=== PATIENT | female | born 1950 | race Caucasian/White ===

== ENCOUNTER 2017-08-12 12:23 | Inpatient (IN) | payer OTHER ==
[2017-08-12] MEDS ORDERED: ALBUTEROL 60 PUFFS/8 GM MDI IH PRN (16:58)
[2017-08-12] MEDS ORDERED: oxyCODONE IR 5 MG TAB PO PRN (16:58)
[2017-08-12] MEDS ORDERED: BISACODYL 10 MG SUPP PR PRN (17:36)
--- NOTE | 2017-08-12 18:05 | GHP ---
[f rep st] HISTORY AND PHYSICAL POST ADMISSION PHYSICIAN EVALUATION AND REHABILITATION TREATMENT PLAN DATE OF ADMISSION: 08/12/2017 DATE OF EVALUATION: 08/12/2017 TIME OF EVALUATION: 1645 REFERRING FACILITY: [facility]. REFERRING PHYSICIAN: Dr. Conti IMPAIRMENT GROUP: 2.1. DATE OF ONSET: 08/06/2017. CONSULTING PHYSICIANS: Pulmonary and community service specialist while she was in the ICU after surgery. Cardiology. REHABILITATION DIAGNOSIS: Debility, status post craniotomy and excision of right frontal brain tumor. ETIOLOGIC DIAGNOSIS: Nontraumatic brain dysfunction. DATE OF SURGERY: 08/06/2017 DATE OF ONSET: 08/06/2017. DATE OF SURGERY: 08/06/2017. HISTORY OF PRESENT ILLNESS: This patient had a fall approximately a month ago after which she had a head CT, which showed a right frontal mass. She was started on dexamethasone and scheduled for surgery. 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 She had an elective right craniotomy and excision of the mass. After surgery, she had 2 episodes of bradycardia, which were considered vasovagal that were associated with nausea, but subsequently, she has had no such episodes. Cardiology was consulted about these episodes and did not recommend any intervention. She was medically stable and ready for rehabilitation. LABORATORY DATA: I see results of the lipid panel, I believe, done last January, which was fairly benign with a total cholesterol of 193 and HDL of 40. I see the results of basic metabolic panel x2 and these were within normal limits after her surgery on 08/10 and 08/11. PRECAUTIONS: She is a fall risk and she has seizure precautions. ACTIVE COMORBIDITIES: She has no active tier 1, tier 2 or tier 3 comorbidities. PAST MEDICAL HISTORY: 1. Endometrial thickening. 2. Prediabetes. 3. Postmenopausal bleeding. 4. Episode of shortness of breath following her fall a month ago. 5. Ectopic . PAST SURGICAL HISTORY: 1. Salpingectomy. 2. Tonsillectomy 3. Cesarian delivery PRE-HOSPITAL MEDICATIONS: 1. Dexamethasone 4 mg p.o. q.12 hours. 2. Albuterol nebulizer or metered-dose inhaler p.r.n. 3. Cholecalciferol 1000 units p.o. daily. 4. Atorvastatin 20 mg p.o. daily. 5. Levothyroxine 50 mcg p.o. daily. 6. Vitamin B12 1000 mcg p.o. daily. 7. Mammoth-3 fatty acids 1000 mg p.o. 3 times daily. ADMISSION MEDICATIONS: 1. Albuterol 2 puffs MDI or nebulizer q.4 hours p.r.n. 2. Atorvastatin 20 mg p.o. at bedtime. 3. Calcium carbonate 500 mg p.o. t.i.d. p.r.n. 4. Cholecalciferol 1000 units p.o. daily. 5. Cyanocobalamin 1000 mcg p.o. daily. 6. Famotidine 20 mg p.o. b.i.d. 7. Levetiracetam 750 mg p.o. b.i.d. 8. Levothyroxine 50 mcg p.o. daily. 9. Mammoth-3 fatty acids 1 p.o. t.i.d. 10. Oxycodone 5-10 mg p.o. q.4 hours p.r.n. 11. Polyethylene glycol 17 g p.o. daily. 12. Senna/docusate 2 tablets p.o. b.i.d. 13. Dexamethasone taper. ALLERGIES: There are no known drug allergies. PSYCHOSOCIAL HISTORY: She is . She lives with her . There are 3 steps to enter the house and a flight of steps up to their bedroom. She has 2 local daughters. 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 She is a nonsmoker. FAMILY HISTORY: Noncontributory. REVIEW OF SYSTEMS: She is aware of slow processing cognitively. She has headaches. She denies vision changes, weakness, numbness or tingling of the extremities. She is not aware of difficulty breathing; however, she is currently on oxygen. She has not been sleeping well. She says she snores occasionally. She denies any loss of sensation. She is not aware of chest pain or palpitations. She does not have a cough or dyspnea. There is no constipation, diarrhea, nausea or vomiting. There is no dysuria or urinary frequency. Otherwise, a 10-point review of systems is negative. PHYSICAL EXAMINATION: VITAL SIGNS: Blood pressure is 111/72, heart rate is 60 , respiratory rate is 16, oxygen saturation is 90% on room air. Temperature is 36.4 degrees Centigrade. I do not have a current weight; however, her weight in clinic prior to her hospitalization was 192 pounds for a BMI of 29. GENERAL : This is an overweight woman dressed in hospital gown, lying in bed, cooperative and in no acute distress. HEENT: Extraocular movements are intact. Pupils are equal, round, reactive to light. Mucous membranes are moist. Dentition is in good condition. She has a crowded airway, Mallampati class 3. NECK: Supple. HEART: There is a regular rate and rhythm with no murmurs, rubs, or gallops. LUNGS: Clear to auscultation bilaterally. ABDOMEN : Soft, nontender, nondistended with normoactive bowel sounds and no hepatosplenomegaly. EXTREMITIES: There is no cyanosis, clubbing, or edema. Radial and dorsalis pedis pulses are 2+ bilaterally. NEUROLOGIC: She is alert. She initially needs orientation to the date, but subsequently retains the orientation, and she is oriented to her place and her current situation. She has a flat affect and slow processing. Cranial nerves 2-12 are grossly intact. Regarding muscle strength, she has weakness at the left hand reinsurance claim analyst, which is 4/5 and at the left lower extremity where the hip flexors are 4/5, at the hamstrings are 4/5, and the quadriceps are 4/5. On the right, her strength is more or less 5/5 overall, though she is less than 5/5 at the left hamstrings and left quadriceps. Sensation is intact to light touch. Deep tendon reflexes are 2+ bilaterally at the biceps, patellar, and Achilles tendons. There is no pronator drift. CURRENT LEVEL OF FUNCTION: Per the pre-admission screen. Regarding diet, feeding, and swallowing, she was on a regular diet and required setup and supervision. For grooming, she needed assistance. For bathing, she needed assistance. For dressing, she needed assistance. For toileting, she needed assistance. Bed mobility was accomplished with minimal assist, transfers with minimal assist and verbal cues. For balance, she required standby assist. Her endurance was fair. She was able to ambulate with minimal assist and a front- wheeled walker. Communication was considered impaired. Regarding cognition, she was noted to be alert and oriented. She followed simple directions. She had impaired executive function, problem solving, and short-term memory. There are no changes on today's exam from the pre-admission screen. IMPRESSION: This is a 67-year-old woman who had a fall approximately a month ago. A head CT found a right frontal mass. Subsequent MRI showed a mass consistent with a high-grade glioma. She underwent surgery 6 days ago with craniotomy and excision of the mass. She had some heart rhythm complications post surgery, including an episode of asystole following an episode of nausea. There was a cardiology consultation and this was considered to be vasovagal and unlikely to be cardiac structural. She has slow processing and likely cognitive impairment, as well as left-sided weakness. She is appropriate for inpatient rehabilitation where she will benefit from PT, OT, and BENEFITS TECHNICIAN to optimize ADLs and mobility towards supervision to modified independent and to optimize cognition toward discharge home safely. Her goal is to complete inpatient rehabilitation and go home with family. She will have therapy with physical therapy, occupational therapy, and speech and language pathology for 60 minutes per day per discipline on 5-7 days of the week. Her expected duration of stay is 10-14 days. It is anticipated that upon discharge, she will continue to benefit from home health services, including Speech and Language Pathology, OT, and PT, and an outpatient brain injury support group. PLAN: 1. Left-sided weakness, status post craniotomy and excision of right frontal brain mass with deficits to mobility and ADLs. PT and OT to optimize mobility and activities of daily living toward discharge to home at the supervision to modified independence level. 2. Cognitive impairment status post surgery, to be assessed and treated per Speech and Language Pathology. 3. Post surgical care. Continue levetiracetam until followup with Neurosurgery. She has been discharged on a dexamethasone taper, but the details are not available. We will contact the discharging hospital to clarify details of dexamethasone taper. 4. Dyspnea, which was coincident with her fall approximately a month prior to surgery. She was prescribed albuterol, both by metered dose inhaler and nebulizer. She is unclear whether this helped. She is currently on oxygen for mild hypoxemia. She will have incentive spirometry and monitoring, and further evaluation can be done depending on how she does. 5. Pain management. Continue oxycodone as ordered out of the hospital. Will additionally add acetaminophen. 6. Hypothyroidism. Continue levothyroxine. 7. Dyslipidemia. Continue atorvastatin. 8. Prophylaxis. With left hemiparesis and relative immobility, as well as a solid tumor, she is at increased risk of deep venous thrombosis. Will order enoxaparin 40 mg subcutaneous daily until her mobility improves considerably. FOLLOWUP: She has followup scheduled with the [facility] on September 04 at 4 p.m. /[id number]/MODL MTDD
--- NOTE | 2017-08-12 18:17 | PDOREHIP ---
Admission IRF-[facility] - Admission - 3 Day Assessment Period Admission Date/Day 1: 08/12/17 Day 2: 08/13/17 Day 3: 08/14/17 - Active Diagnoses Comorbidities and Co-existing Conditions at Admission: 23820. None of the Above - Skin Conditions Unhealed Pressure Ulcer (1 or more/Stage 1 or >)-Admission: 0. No
[2017-08-12] MEDS: FAMOTIDINE 20 MG TAB PO SCH (20:23)
[2017-08-12] MEDS: levETIRAcetam 250 MG TAB PO SCH (20:23)
[2017-08-12] MEDS: DEXAMETHASONE 4 MG TAB PO SCH (20:24)
[2017-08-12] MEDS: ATORVASTATIN CALCIUM 20 MG TAB PO SCH (20:24)
[2017-08-12] MEDS: OMEGA-3 FATTY ACIDS 1,000 MG CAP PO SCH (20:24)
[2017-08-12] MEDS: SENNOSIDES/DOCUSATE SODIUM TAB PO SCH (20:30)
[2017-08-12] MEDS ORDERED: DHA PO SCH (22:00)
[2017-08-12] MEDS ORDERED: OMEGA PO SCH (22:00)
[2017-08-12] MEDS ORDERED: EPA PO SCH (22:00)
[2017-08-12] MEDS ORDERED: FISH OIL PO SCH (22:00)
[2017-08-13] MEDS: ACETAMINOPHEN 325 MG TAB PO PRN ×2 (04:42→21:06)
[2017-08-13] MEDS: LEVOTHYROXINE 50 MCG TAB PO SCH (05:20)
[2017-08-13] MEDS: SENNOSIDES/DOCUSATE SODIUM TAB PO SCH ×2 (08:31→21:06)
[2017-08-13] MEDS: POLYETHYLENE GLYCOL 3350 17 GM PKT PO SCH (08:31)
[2017-08-13] MEDS: CHOLECALCIFEROL VIT D3 1,000 UNITS TAB PO SCH (08:32)
[2017-08-13] MEDS: CYANO/VITAMIN B12 1000 MCG TAB PO SCH (08:33)
[2017-08-13] MEDS: DEXAMETHASONE 4 MG TAB PO SCH ×2 (08:33→21:06)
[2017-08-13] MEDS: FAMOTIDINE 20 MG TAB PO SCH ×2 (08:34→21:06)
[2017-08-13] MEDS: levETIRAcetam 250 MG TAB PO SCH ×2 (08:36→21:06)
[2017-08-13] MEDS: OMEGA-3 FATTY ACIDS 1,000 MG CAP PO SCH ×3 (08:37→21:06)
[2017-08-13 08:47] LABS: PLATELET COUNT 212 10^3/uL (150-400)
[2017-08-13] MEDS: ENOXAPARIN 40 MG/0.4 ML SYR SC SCH (08:56)
[2017-08-13] MEDS ORDERED: NON-FORMULARY NEW DRUG (Cyanocobalamin (Vitamin B-12) [Vitamin B-12] 1,000 MCG) PO SCH (09:00)
[2017-08-13] MEDS ORDERED: CHOLECALCIFEROL 1000 UNIT PO SCH (09:00)
--- NOTE | 2017-08-13 10:08 | SOAPPROG ---
SOAP Progress Note Assessment/Plan: Assessment: * Left-sided weakness, status post craniotomy and excision of right frontal brain mass with deficits to mobility and ADLs. PT and OT to optimize mobility and activities of daily living toward discharge to home at the supervision to modified independence level. * Cognitive impairment status post surgery, to be assessed and treated per Speech and Language Pathology. * Post surgical care. Continue levetiracetam until followup with Neurosurgery. Continue dexamethasone taper. * Dyspnea, which was coincident with her fall approximately a month prior to surgery. * Not requiring O2. * Continue incentive spirometer. * Continue p.r.n. Albuterol. * Pain management. * Appears to be adequate with acetaminophen. Not using oxycodone. * Ecchymosis right plantar foot. * May have had minor trauma that she did not notice, and has easy bruising due to enoxaparin. * Hypothyroidism. Continue levothyroxine. * Dyslipidemia. Continue atorvastatin. * Prophylaxis. With left hemiparesis and relative immobility, as well as a solid tumor, she is at increased risk of deep venous thrombosis. Will order enoxaparin 40 mg subcutaneous daily until her mobility improves considerably. FOLLOWUP: She has followup scheduled with the [facility] on September 04 at 4 p.m. 08/13/17 11:22 Subjective: Did not sleep well. Reports she lot on her mind. However declines offer of melatonin or trazodone. She says she uses a marijuana cooking nightly at home. Otherwise without complaints. Daughter noted a bruised spot on her right foot. She reports occupational therapy is help her with awareness of the position of her left arm. Objective: Vital Signs Temp Pulse Resp BP Pulse Ox 36.5 C 90 16 104/66 96 08/13/17 08:00 08/13/17 08:00 08/12/17 20:00 08/13/17 08:00 08/13/17 08:00 Laboratory Results 08/13/17 06:00 08/13/17 06:00 08/12/17 08/13/17 08/14/17 05:59 05:59 05:59 Intake Total 836 250 Output Total 1850 300 Balance -1014 -50 Physical Exam - Physical Exam General Appearance: WD/WN, alert, no apparent distress Respiratory: normal breath sounds, No crackles, No rhonchi, No wheezing Cardiac/Chest: regular rate, rhythm, No edema, No diastolic murmur, No systolic murmur Peripheral Pulses: 2+: dorsalis-pedis (R) Skin: normal color, warm/dry, other (1.5 cm area of ecchymosis right plantar foot under her arch. Nontender.) Neuro/Psych: alert, normal mood/affect, oriented x 3, motor weakness (LUE) ICD10 Worksheet Patient Problems: Problems Problem Status Onset Brain mass Acute S/P craniotomy Acute
[2017-08-13] MEDS: ATORVASTATIN CALCIUM 20 MG TAB PO SCH (21:06)
[2017-08-14] MEDS: CALCIUM CARBONATE 500 MG CHEWABLE TAB PO PRN ×2 (00:53→04:25)
[2017-08-14] MEDS: LEVOTHYROXINE 50 MCG TAB PO SCH (06:08)
[2017-08-14] MEDS: DEXAMETHASONE 4 MG TAB PO SCH ×2 (08:58→21:33)
[2017-08-14] MEDS: levETIRAcetam 250 MG TAB PO SCH ×2 (08:59→21:32)
[2017-08-14] MEDS: CYANO/VITAMIN B12 1000 MCG TAB PO SCH (09:01)
[2017-08-14] MEDS: OMEGA-3 FATTY ACIDS 1,000 MG CAP PO SCH ×3 (09:01→21:33)
[2017-08-14] MEDS: FAMOTIDINE 20 MG TAB PO SCH ×2 (09:01→21:33)
[2017-08-14] MEDS: CHOLECALCIFEROL VIT D3 1,000 UNITS TAB PO SCH (09:05)
[2017-08-14] MEDS: SENNOSIDES/DOCUSATE SODIUM TAB PO SCH ×2 (09:06→21:39)
[2017-08-14] MEDS: POLYETHYLENE GLYCOL 3350 17 GM PKT PO SCH (09:06)
[2017-08-14] MEDS: ENOXAPARIN 40 MG/0.4 ML SYR SC SCH (11:02)
--- NOTE | 2017-08-14 13:44 | SOAPPROG ---
SOAP Progress Note Assessment/Plan: Assessment: * Left-sided weakness, status post craniotomy and excision of right frontal brain mass with deficits to mobility and ADLs. * Initial functional independence measure of 67 on 08/14/2017. She has left hemineglect. Transfer and ambulation with front wheeled walker requires SBA/ CGA. She climbed steps with 1 railing, SBA/CGA. Dressing was done with setup to standby assist but she needed cues to pull up right pants leg. She showered with close standby assist. * Continue PT and OT to optimize mobility and activities of daily living toward discharge to home at the supervision to modified independence level. * Mild dysphagia and DIS prosody. Continue Speech and Language Pathology. * Post surgical care. Continue levetiracetam until followup with Neurosurgery. Continue dexamethasone taper. * Dyspnea, which was coincident with her fall approximately a month prior to surgery. * Not requiring O2. * Continue incentive spirometer. * Continue p.r.n. Albuterol. * Pain management. * Appears to be adequate with acetaminophen. Not using oxycodone. * Ecchymosis right plantar foot. * May have had minor trauma that she did not notice, and has easy bruising due to enoxaparin. * Hypothyroidism. Continue levothyroxine. * Dyslipidemia. Continue atorvastatin. * Prophylaxis. With left hemiparesis and relative immobility, as well as a solid tumor, she is at increased risk of deep venous thrombosis. Continue enoxaparin 40 mg subcutaneous daily until her mobility improves considerably. FOLLOWUP: She has followup scheduled with the [facility] on 08/20 at 1400. Transport by , Therapeutic pass for [facility], 08/18/2017. Car transfer training with . Attended staffing, 15 min. Discussed with case management. Dietitian, pharmacist, nursing, PT, OT, FAMILY RESOURCE MANAGEMENT SPECIALIST. Tentative discharge date set for 08/28/2017, home with . 08/14/17 13:45 Subjective: No complaints. Not in pain. Aware that she can lose balance when distracted. Objective: Vital Signs Temp Pulse Resp BP Pulse Ox 36.6 C 51 L 18 122/75 H 94 08/14/17 06:10 08/14/17 06:10 08/14/17 06:10 08/14/17 06:10 08/14/17 06:10 Laboratory Results 08/13/17 06:00 08/13/17 06:00 08/13/17 08/14/17 08/15/17 05:59 05:59 05:59 Intake Total 836 1640 240 Output Total 1850 1300 Balance -1014 340 240 - Time Spent With Patient Time Spent With Patient: Greater than 35 min floor time today, including more than 50% of time in coordination of care during staffing meeting, and counseling patient. Physical Exam - Physical Exam General Appearance: WD/WN, alert, no apparent distress Respiratory: normal breath sounds, No crackles, No rhonchi, No wheezing Cardiac/Chest: regular rate, rhythm, No diastolic murmur, No systolic murmur Skin: normal color, warm/dry, other (Incision C/D/I) Neuro/Psych: alert, normal mood/affect, oriented x 3, abnormal gait (Slow, with front wheeled walker. Loss of balance to left when distracted on her right side with fall prevented by physical therapist.) ICD10 Worksheet Patient Problems: Problems Problem Status Onset Brain mass Acute S/P craniotomy Acute
[2017-08-14] MEDS: ATORVASTATIN CALCIUM 20 MG TAB PO SCH (21:33)
[2017-08-15] MEDS: ACETAMINOPHEN 325 MG TAB PO PRN ×2 (03:24→19:35)
[2017-08-15] MEDS: LEVOTHYROXINE 50 MCG TAB PO SCH (06:00)
[2017-08-15] MEDS: CYANO/VITAMIN B12 1000 MCG TAB PO SCH (09:33)
[2017-08-15] MEDS: levETIRAcetam 250 MG TAB PO SCH ×2 (09:33→20:50)
[2017-08-15] MEDS: FAMOTIDINE 20 MG TAB PO SCH ×2 (09:33→20:49)
[2017-08-15] MEDS: DEXAMETHASONE 2 MG TAB PO SCH ×2 (09:34→20:49)
[2017-08-15] MEDS: OMEGA-3 FATTY ACIDS 1,000 MG CAP PO SCH ×3 (09:34→20:55)
[2017-08-15] MEDS: ENOXAPARIN 40 MG/0.4 ML SYR SC SCH (09:37)
[2017-08-15] MEDS: SENNOSIDES/DOCUSATE SODIUM TAB PO SCH ×2 (09:41→22:22)
[2017-08-15] MEDS: POLYETHYLENE GLYCOL 3350 17 GM PKT PO SCH (09:41)
--- NOTE | 2017-08-15 11:48 | SOAPPROG ---
SOAP Progress Note Assessment/Plan: Assessment: * Left-sided weakness, status post craniotomy and excision of right frontal brain mass on 08/06/2017 with deficits to mobility and ADLs. * Initial functional independence measure of 67 on 08/14/2017. She has left hemineglect. Transfer and ambulation with front wheeled walker requires SBA/ CGA. She climbed steps with 1 railing, SBA/CGA. Dressing was done with setup to standby assist but she needed cues to pull up right pants leg. She showered with close standby assist. * Continue PT and OT to optimize mobility and activities of daily living toward discharge to home at the supervision to modified independence level. * Mild dysphagia and DIS prosody. Continue Speech and Language Pathology. * Post surgical care. Continue levetiracetam until followup with Neurosurgery. Continue dexamethasone taper. * Dyspnea, which was coincident with her fall approximately a month prior to surgery. * Not requiring O2. * Continue incentive spirometer. * Continue p.r.n. Albuterol. * Pain management. * Appears to be adequate with acetaminophen. Not using oxycodone. * Ecchymosis right plantar foot. * May have had minor trauma that she did not notice, and has easy bruising due to enoxaparin. * Hypothyroidism. Continue levothyroxine. * Dyslipidemia. Continue atorvastatin. * Prophylaxis. With left hemiparesis and relative immobility, as well as a solid tumor, she is at increased risk of deep venous thrombosis. Continue enoxaparin 40 mg subcutaneous daily until her mobility improves considerably. FOLLOWUP: She has followup scheduled with the [facility] on 08/20 at 1400. Transport by . Therapeutic pass for [facility], 08/18/2017. Car transfer training with . Tentative discharge date set for 08/28/2017, home with . 08/15/17 11:55 Subjective: No complaints. Slept well. No cough or dyspnea, no fevers or chills. Finds working with therapies to be hard work. Objective: Vital Signs Temp Pulse Resp BP Pulse Ox 36.6 C 68 16 98/68 L 92 08/15/17 06:15 08/15/17 06:15 08/15/17 06:15 08/15/17 06:15 08/15/17 06:15 Laboratory Results 08/13/17 06:00 08/13/17 06:00 08/14/17 08/15/17 08/16/17 05:59 05:59 05:59 Intake Total 1640 360 606 Output Total 1300 Balance 340 360 606 Physical Exam - Physical Exam General Appearance: WD/WN, alert, no apparent distress Respiratory: normal breath sounds, No crackles, No rhonchi, No wheezing Cardiac/Chest: regular rate, rhythm, No edema Skin: normal color, warm/dry, other (Scalp incision clean dry and intact; no external sutures visible.) Neuro/Psych: alert, normal mood/affect, oriented x 3 ICD10 Worksheet Patient Problems: Problems Problem Status Onset Brain mass Acute S/P craniotomy Acute
[2017-08-15] MEDS: ATORVASTATIN CALCIUM 20 MG TAB PO SCH (20:49)
[2017-08-15] MEDS ORDERED: DEXAMETHASONE 2 MG TAB PO SCH (21:00)
[2017-08-15] MEDS: CALCIUM CARBONATE 500 MG CHEWABLE TAB PO PRN (23:06)
[2017-08-16] MEDS: CALCIUM CARBONATE 500 MG CHEWABLE TAB PO PRN (04:34)
[2017-08-16] MEDS: LEVOTHYROXINE 50 MCG TAB PO SCH (04:34)
[2017-08-16] MEDS: ENOXAPARIN 40 MG/0.4 ML SYR SC SCH (09:21)
[2017-08-16] MEDS: CHOLECALCIFEROL VIT D3 1,000 UNITS TAB PO SCH (09:21)
[2017-08-16] MEDS: CYANO/VITAMIN B12 1000 MCG TAB PO SCH (09:21)
[2017-08-16] MEDS: DEXAMETHASONE 2 MG TAB PO SCH ×2 (09:21→20:46)
[2017-08-16] MEDS: FAMOTIDINE 20 MG TAB PO SCH ×2 (09:21→20:42)
[2017-08-16] MEDS: POLYETHYLENE GLYCOL 3350 17 GM PKT PO SCH (09:22)
[2017-08-16] MEDS: OMEGA-3 FATTY ACIDS 1,000 MG CAP PO SCH ×3 (09:22→20:43)
[2017-08-16] MEDS: SENNOSIDES/DOCUSATE SODIUM TAB PO SCH ×2 (09:22→20:44)
[2017-08-16] MEDS: levETIRAcetam 250 MG TAB PO SCH ×2 (09:22→20:42)
--- NOTE | 2017-08-16 09:33 | SOAPPROG ---
SOAP Progress Note Assessment/Plan: Assessment: * Left-sided weakness, status post craniotomy and excision of right frontal brain mass on 08/06/2017 with deficits to mobility and ADLs. * Initial functional independence measure of 67 on 08/14/2017. She has left hemineglect. Transfer and ambulation with front wheeled walker requires SBA/ CGA. She climbed steps with 1 railing, SBA/CGA. Dressing was done with setup to standby assist but she needed cues to pull up right pants leg. She showered with close standby assist. * Continue PT and OT to optimize mobility and activities of daily living toward discharge to home at the supervision to modified independence level. * Mild dysphagia and dysprosody. Continue Speech and Language Pathology. * Post surgical care. Continue levetiracetam until followup with Neurosurgery. Continue dexamethasone taper. * Dyspnea, which was coincident with her fall approximately a month prior to surgery. * Not requiring O2. * Continue incentive spirometer. * Continue p.r.n. Albuterol. * Pain management. * Appears to be adequate with acetaminophen. Not using oxycodone. * Ecchymosis right plantar foot. * May have had minor trauma that she did not notice, and has easy bruising due to enoxaparin. * Hypothyroidism. Continue levothyroxine. * Dyslipidemia. Continue atorvastatin. * Prophylaxis. With left hemiparesis and relative immobility, as well as a solid tumor, she is at increased risk of deep venous thrombosis. Continue enoxaparin 40 mg subcutaneous daily until her mobility improves considerably. FOLLOWUP: She has followup scheduled with the [facility] on 08/20 at 1400. Transport by . Therapeutic pass for [facility], 08/18/2017. Car transfer training with . Tentative discharge date set for 08/28/2017, home with . 08/16/17 09:30 Subjective: Reports that incision her scalp has become itchy and she has remind herself to not pick at it. Says she had a restless night last night and had difficulty getting comfortable in bed but no specific pain complaints. No cough or dyspnea , no fevers or chills. Objective: Vital Signs Temp Pulse Resp BP Pulse Ox 36.9 C 87 15 106/71 96 08/15/17 18:31 08/15/17 18:31 08/15/17 18:31 08/15/17 18:31 08/15/17 18:31 Laboratory Results 08/13/17 06:00 08/13/17 06:00 08/15/17 08/16/17 08/17/17 05:59 05:59 05:59 Intake Total 360 1274 Output Total 1 Balance 360 1273 Physical Exam - Physical Exam General Appearance: WD/WN, alert, no apparent distress Respiratory: No respiratory distress, No accessory muscle use Skin: normal color, warm/dry Neuro/Psych: alert, normal mood/affect, oriented x 3, abnormal gait (Slow, wide- based, with front wheeled walker, accompanied by OT.) ICD10 Worksheet Patient Problems: Problems Problem Status Onset Brain mass Acute S/P craniotomy Acute
[2017-08-16] MEDS: ATORVASTATIN CALCIUM 20 MG TAB PO SCH (20:44)
[2017-08-16] MEDS: ACETAMINOPHEN 325 MG TAB PO PRN (20:44)
[2017-08-17] MEDS: LEVOTHYROXINE 50 MCG TAB PO SCH (05:31)
[2017-08-17] MEDS: DEXAMETHASONE 2 MG TAB PO SCH ×2 (08:28→20:32)
[2017-08-17] MEDS: FAMOTIDINE 20 MG TAB PO SCH ×2 (08:28→20:32)
[2017-08-17] MEDS: CHOLECALCIFEROL VIT D3 1,000 UNITS TAB PO SCH (08:29)
[2017-08-17] MEDS: CYANO/VITAMIN B12 1000 MCG TAB PO SCH (08:29)
[2017-08-17] MEDS: levETIRAcetam 250 MG TAB PO SCH ×2 (08:30→20:32)
[2017-08-17] MEDS: ENOXAPARIN 40 MG/0.4 ML SYR SC SCH (08:30)
[2017-08-17] MEDS: OMEGA-3 FATTY ACIDS 1,000 MG CAP PO SCH ×3 (08:30→20:56)
[2017-08-17] MEDS: SENNOSIDES/DOCUSATE SODIUM TAB PO SCH ×2 (08:31→20:56)
[2017-08-17] MEDS: POLYETHYLENE GLYCOL 3350 17 GM PKT PO SCH (08:31)
--- NOTE | 2017-08-17 10:03 | SOAPPROG ---
SOAP Progress Note Assessment/Plan: Assessment: * Left-sided weakness, status post craniotomy and excision of right frontal brain mass on 08/06/2017 with deficits to mobility and ADLs. * Initial functional independence measure of 67 on 08/14/2017. She has left hemineglect. Discussion with her therapist indicates that HER ADÁN-NEGLECT MAY BE IMPROVING. ON TODAY'S EXAM, PATIENT IS AWARE OF AT LEAST INTERMITTENT LEFT ADÁN-NEGLECT. WHEN ASKED TO RAISE BOTH ARMS ABOVE SHOULDER LEVEL SHE COMPLIES. ALSO COMPLIES BILATERALLY WITH [id number] TESTING. OCCUPATIONAL THERAPY TO FOCUS ON STRATEGIES TO MINIMIZE TENDENCY TO LEFT ADÁN-NEGLECT. MIRROR THERAPY AND LIMB ISOLATION MAY BE HELPFUL. Transfer and ambulation with front wheeled walker requires SBA/CGA. She climbed steps with 1 railing, SBA/CGA. Dressing was done with setup to standby assist but she needed cues to pull up right pants leg. She showered with close standby assist. * Continue PT and OT to optimize mobility and activities of daily living toward discharge to home at the supervision to modified independence level. * Mild dysphagia and dysprosody. Continue Speech and Language Pathology. * Post surgical care. Continue levetiracetam until followup with Neurosurgery. Continue dexamethasone taper. * Dyspnea, which was coincident with her fall approximately a month prior to surgery. * Not requiring O2. * Continue incentive spirometer. * Continue p.r.n. Albuterol. * Pain management. * Appears to be adequate with acetaminophen. Not using oxycodone. * Ecchymosis right plantar foot. * May have had minor trauma that she did not notice, and has easy bruising due to enoxaparin. * Hypothyroidism. Continue levothyroxine. * Dyslipidemia. Continue atorvastatin. * Prophylaxis. With left hemiparesis and relative immobility, as well as a solid tumor, she is at increased risk of deep venous thrombosis. Continue enoxaparin 40 mg subcutaneous daily until her mobility improves considerably. FOLLOWUP: She has followup scheduled with the [facility] on 08/20 at 1400. Transport by . Therapeutic pass for [facility], 08/18/2017. Car transfer training with . Tentative discharge date set for 08/28/2017, home with . Plan: 08/17/17 10:03 Subjective: NO COMPLAINTS REPORTED BY PATIENT OR NURSING STAFF. Objective: Vital Signs Temp Pulse Resp BP Pulse Ox 36.6 C 75 16 116/75 93 08/17/17 06:32 08/17/17 06:32 08/17/17 06:32 08/17/17 06:32 08/17/17 06:32 Laboratory Results 08/13/17 06:00 08/13/17 06:00 08/16/17 08/17/17 08/18/17 05:59 05:59 05:59 Intake Total 1273 360 760 Output Total 1 Balance 1273 360 760 Physical Exam - Physical Exam General Appearance: alert, no apparent distress Respiratory: chest non-tender, lungs clear Cardiac/Chest: irregularly irregular, No edema Abdomen: non-tender, soft Skin: warm/dry Extremities: No swelling, No Lisa's sign Neuro/Psych: alert, normal mood/affect, motor weakness, other (MILD LEFT UPPER GREATER THAN LOWER EXTREMITY WEAKNESS WITH MILD DYSMETRIA ON THE LEFT. 4-/5 SHOULDER GIRDLE STRENGTH, WRIST EXTENSORS.) ICD10 Worksheet Patient Problems: Problems Problem Status Onset Brain mass Acute S/P craniotomy Acute
[2017-08-17] MEDS: ATORVASTATIN CALCIUM 20 MG TAB PO SCH (20:32)
[2017-08-18] MEDS: LEVOTHYROXINE 50 MCG TAB PO SCH (05:33)
[2017-08-18] MEDS: ENOXAPARIN 40 MG/0.4 ML SYR SC SCH (08:28)
[2017-08-18] MEDS: CYANO/VITAMIN B12 1000 MCG TAB PO SCH (08:29)
[2017-08-18] MEDS: DEXAMETHASONE 2 MG TAB PO SCH ×2 (08:29→20:29)
[2017-08-18] MEDS: SENNOSIDES/DOCUSATE SODIUM TAB PO SCH ×2 (08:29→21:40)
[2017-08-18] MEDS: OMEGA-3 FATTY ACIDS 1,000 MG CAP PO SCH ×3 (08:29→20:28)
[2017-08-18] MEDS: levETIRAcetam 250 MG TAB PO SCH ×2 (08:29→20:30)
[2017-08-18] MEDS: CHOLECALCIFEROL VIT D3 1,000 UNITS TAB PO SCH (08:29)
[2017-08-18] MEDS: FAMOTIDINE 20 MG TAB PO SCH ×2 (08:30→20:29)
[2017-08-18] MEDS: POLYETHYLENE GLYCOL 3350 17 GM PKT PO SCH (08:30)
--- NOTE | 2017-08-18 09:37 | SOAPPROG ---
SOAP Progress Note Assessment/Plan: Assessment: * Left-sided weakness, status post craniotomy and excision of right frontal brain mass on 08/06/2017 with deficits to mobility and ADLs. DISCUSSED LEFT ADÁN -NEGLECT WITH HER SPEECH THERAPIST WHO AGREES THAT IT IS MILD AND SHE IS COGNIZANT OF IT. THIS PORTENDS A FAVORABLE PROGNOSIS. THEY ARE WORKING ON COMPENSATORY STRATEGIES FOR THIS. Transfer and ambulation with front wheeled walker requires SBA/CGA. She climbed steps with 1 railing, SBA/CGA. Dressing was done with setup to standby assist but she needed cues to pull up right pants leg. She showered with close standby assist. * Continue PT and OT to optimize mobility and activities of daily living toward discharge to home at the supervision to modified independence level. * Mild dysphagia and dysprosody. Continue Speech and Language Pathology. I HAVE ASKED HER SPEECH THERAPIST TO PROVIDE HER WITH SOME PUZZLES AND WORD GAMES X CETERA TO HELP IMPROVE HER CONCENTRATION AND ATTENTION. * Post surgical care. Continue levetiracetam until followup with Neurosurgery. Continue dexamethasone taper. * Dyspnea, which was coincident with her fall approximately a month prior to surgery. * Not requiring O2. * Continue incentive spirometer. * Continue p.r.n. Albuterol. * Pain management. * Appears to be adequate with acetaminophen. Not using oxycodone. * Ecchymosis right plantar foot. * May have had minor trauma that she did not notice, and has easy bruising due to enoxaparin. * Hypothyroidism. Continue levothyroxine. * Dyslipidemia. Continue atorvastatin. * Prophylaxis. With left hemiparesis and relative immobility, as well as a solid tumor, she is at increased risk of deep venous thrombosis. Continue enoxaparin 40 mg subcutaneous daily until her mobility improves considerably. SHE IS ONLY WALKING ABOUT 60 FT WITH FWW. I HAVE ENCOURAGED HER TO HAVE THE REHAB STAFF WALK WITH HER UP AND DOWN THE HALLWAY SEVERAL TIMES PER DAY. SHE UNDERSTANDS THAT SHE IS CONTACT GUARD ASSIST. FOLLOWUP: She has followup scheduled with the [facility] on 08/20 at 1400. Transport by . Therapeutic pass for [facility], 08/18/2017. Car transfer training with . Tentative discharge date set for 08/28/2017, home with . 08/18/17 09:34 Subjective: SHE REPORTS THAT SHE IS A LITTLE DISCOURAGED AT THE SLOW PROGRESS OF HER THERAPIES. SHE HAS BEEN WORKING WITH SPEECH THERAPY ON THE LEFT-SIDED NEGLECT. SHE RELATES THAT SHE HAD SOME DIFFICULTY DOING CROSSWORD PUZZLES YESTERDAY. Objective: Vital Signs Temp Pulse Resp BP Pulse Ox 36.7 C 67 16 111/73 93 08/18/17 06:01 08/18/17 06:01 08/18/17 06:01 08/18/17 06:01 08/18/17 06:01 Laboratory Results 08/13/17 06:00 08/13/17 06:00 08/17/17 08/18/17 08/19/17 05:59 05:59 05:59 Intake Total 360 2070 Balance 360 2070 Physical Exam - Physical Exam General Appearance: WD/WN, alert, no apparent distress EENT: PERRL/EOMI Respiratory: lungs clear, normal breath sounds Abdomen: non-tender, soft Neuro/Psych: depressed affect ICD10 Worksheet Patient Problems: Problems Problem Status Onset Brain mass Acute S/P craniotomy Acute
[2017-08-18] MEDS: ATORVASTATIN CALCIUM 20 MG TAB PO SCH (20:29)
[2017-08-18] MEDS: CALCIUM CARBONATE 500 MG CHEWABLE TAB PO PRN (20:50)
[2017-08-19] MEDS: LEVOTHYROXINE 50 MCG TAB PO SCH (04:54)
[2017-08-19] MEDS ORDERED: ENOXAPARIN 40 MG/0.4 ML SYR SC ONE (09:16)
[2017-08-19] MEDS ORDERED: SENNOSIDES/DOCUSATE SODIUM TAB PO PRN (09:50)
[2017-08-19] MEDS ORDERED: ENOXAPARIN 80 MG/0.8 ML SYR SC ONE (10:30)
[2017-08-19] MEDS: FAMOTIDINE 20 MG TAB PO SCH ×2 (10:54→21:07)
[2017-08-19] MEDS: levETIRAcetam 250 MG TAB PO SCH ×2 (10:54→21:07)
[2017-08-19] MEDS: CHOLECALCIFEROL VIT D3 1,000 UNITS TAB PO SCH (10:54)
[2017-08-19] MEDS: DEXAMETHASONE 2 MG TAB PO SCH ×2 (10:54→21:08)
[2017-08-19] MEDS: POLYETHYLENE GLYCOL 3350 17 GM PKT PO SCH (10:55)
[2017-08-19] MEDS: CYANO/VITAMIN B12 1000 MCG TAB PO SCH (10:55)
[2017-08-19] MEDS: SENNOSIDES/DOCUSATE SODIUM TAB PO SCH (11:14)
[2017-08-19] MEDS: OMEGA-3 FATTY ACIDS 1,000 MG CAP PO SCH (11:14)
[2017-08-19] MEDS: ENOXAPARIN 40 MG/0.4 ML SYR SC SCH (11:14)
[2017-08-19] MEDS: ACETAMINOPHEN 325 MG TAB PO PRN (11:24)
--- NOTE | 2017-08-19 11:47 | SOAPPROG ---
SOAP Progress Note Assessment/Plan: Assessment: * Left-sided weakness, status post craniotomy and excision of right frontal brain mass on 08/06/2017 with deficits to mobility and ADLs. * Initial functional independence measure of 67 on 08/14/2017. She has left hemineglect. Transfer and ambulation with front wheeled walker requires SBA/ CGA. She climbed steps with 1 railing, SBA/CGA. Dressing was done with setup to standby assist but she needed cues to pull up right pants leg. She showered with close standby assist. * Continue PT and OT to optimize mobility and activities of daily living toward discharge to home at the supervision to modified independence level. * Mild dysphagia and dysprosody. Continue Speech and Language Pathology. * Post surgical care. Continue levetiracetam until followup with Neurosurgery. Continue dexamethasone taper. * DVT, distal, peroneal vein. * High risk per Wells score, and had DVT while on prophylactic enoxaparin. * Changed enoxaparin to treatment dose, 1 milligram/kilogram subcutaneous twice daily. * She should certainly continue for 1 month, and possibly 3 months or indefinitely. * NOAC is a possibility but there is less data re use in cancer patients. She says she doesn't mind the injections. * Follow-up with Oncology. * Dyspnea, which was coincident with her fall approximately a month prior to surgery. * Not requiring O2. * Continue incentive spirometer. * Continue p.r.n. Albuterol. * Pain management. * Appears to be adequate with acetaminophen. Not using oxycodone. * Ecchymosis right plantar foot. * May have had minor trauma that she did not notice, and has easy bruising due to enoxaparin. * Hypothyroidism. Continue levothyroxine. * Dyslipidemia. Continue atorvastatin. * Prophylaxis. With left hemiparesis and relative immobility, as well as a solid tumor, she is at increased risk of deep venous thrombosis. Continue enoxaparin 40 mg subcutaneous daily until her mobility improves considerably. FOLLOWUP: She has followup scheduled with the [facility] on 08/20 at 1400. Transport by . Tentative discharge date set for 08/28/2017, home with . Will have home PT OT and ENVIRONMENTAL EDUCATION SPECIALIST. 08/19/17 11:42 Subjective: Dislikes the SCDs at night. She says it feels like they are rats chewing at her legs. Denies and chest pain cough or dyspnea. Had left calf pain this morning and was diagnosed with DVT. Objective: Vital Signs Temp Pulse Resp BP Pulse Ox 36.9 C 62 16 104/78 96 08/19/17 10:24 08/19/17 10:24 08/19/17 10:24 08/19/17 10:24 08/19/17 10:24 Laboratory Results 08/13/17 06:00 08/13/17 06:00 08/18/17 08/19/17 08/20/17 05:59 05:59 05:59 Intake Total 2069 700 476 Balance 2069 700 476 Physical Exam - Physical Exam General Appearance: WD/WN, alert, no apparent distress Respiratory: No respiratory distress, No accessory muscle use Skin: normal color, warm/dry Neuro/Psych: alert, normal mood/affect, oriented x 3, other (Gait he is nearly normal with trekking pole in left hand, accompanied by PT.) ICD10 Worksheet Patient Problems: Problems Problem Status Onset Brain mass Acute S/P craniotomy Acute
[2017-08-19] MEDS: ATORVASTATIN CALCIUM 20 MG TAB PO SCH (21:07)
[2017-08-19] MEDS: ENOXAPARIN 80 MG/0.8 ML SYR SC SCH (21:07)
[2017-08-20] MEDS: LEVOTHYROXINE 50 MCG TAB PO SCH (05:41)
[2017-08-20] MEDS: ACETAMINOPHEN 325 MG TAB PO PRN (07:44)
[2017-08-20] MEDS: ENOXAPARIN 80 MG/0.8 ML SYR SC SCH ×2 (09:03→20:36)
[2017-08-20] MEDS: CYANO/VITAMIN B12 1000 MCG TAB PO SCH (09:04)
[2017-08-20] MEDS: DEXAMETHASONE 2 MG TAB PO SCH ×2 (09:04→20:36)
[2017-08-20] MEDS: FAMOTIDINE 20 MG TAB PO SCH ×2 (09:04→20:36)
[2017-08-20] MEDS: CHOLECALCIFEROL VIT D3 1,000 UNITS TAB PO SCH (09:04)
[2017-08-20] MEDS: POLYETHYLENE GLYCOL 3350 17 GM PKT PO SCH (09:04)
[2017-08-20] MEDS: levETIRAcetam 250 MG TAB PO SCH ×2 (09:04→20:35)
--- NOTE | 2017-08-20 12:16 | SOAPPROG ---
SOAP Progress Note Assessment/Plan: Assessment: * Left-sided weakness, status post craniotomy and excision of right frontal brain mass on 08/06/2017 with deficits to mobility and ADLs. * Initial functional independence measure of 67 on 08/14/2017. She has left hemineglect. Transfer and ambulation with front wheeled walker requires SBA/ CGA. She climbed steps with 1 railing, SBA/CGA. Dressing was done with setup to standby assist but she needed cues to pull up right pants leg. She showered with close standby assist. * Continue PT and OT to optimize mobility and activities of daily living toward discharge to home at the supervision to modified independence level. * Mild dysphagia and dysprosody. Continue Speech and Language Pathology. * Post surgical care. Continue levetiracetam until followup with Neurosurgery. Continue dexamethasone taper. * DVT, distal, peroneal vein. * High risk per Wells score, and had DVT while on prophylactic enoxaparin. * Changed enoxaparin to treatment dose, 1 milligram/kilogram subcutaneous twice daily. * She should certainly continue for 1 month, and possibly 3 months or indefinitely. * NOAC is a possibility but there is less data re use in cancer patients. She says she doesn't mind the injections. * Follow-up with Oncology. * Dyspnea, which was coincident with her fall approximately a month prior to surgery. * Not requiring O2. * Continue incentive spirometer. * Continue p.r.n. Albuterol. * Pain management. * Appears to be adequate with acetaminophen. Not using oxycodone. * Ecchymosis right plantar foot. * May have had minor trauma that she did not notice, and has easy bruising due to enoxaparin. * Hypothyroidism. Continue levothyroxine. * Dyslipidemia. Continue atorvastatin. * Prophylaxis. With left hemiparesis and relative immobility, as well as a solid tumor, she is at increased risk of deep venous thrombosis. Continue enoxaparin 80 makes obtaining S twice daily. FOLLOWUP: She has followup scheduled with the [facility] on 08/20 at 1400. Transport by . Tentative discharge date set for 08/28/2017, home with . Will have home PT OT and RIP SAW OPERATOR. 08/20/17 12:14 Subjective: No complaints this morning. No calf pain though notes some left knee pain. No cough or dyspnea. No fevers or chills. Objective: Vital Signs Temp Pulse Resp BP Pulse Ox 36.7 C 85 16 110/75 95 08/20/17 06:01 08/20/17 06:01 08/20/17 06:01 08/20/17 06:01 08/20/17 06:01 Laboratory Results 08/13/17 06:00 08/13/17 06:00 08/19/17 08/20/17 08/21/17 05:59 05:59 05:59 Intake Total 700 956 Balance 700 956 Physical Exam - Physical Exam General Appearance: WD/WN, alert, no apparent distress Respiratory: No respiratory distress, No accessory muscle use Skin: normal color, warm/dry Extremities: pedal edema (Trace pretibial left lower extremity), No calf tenderness Neuro/Psych: alert, normal mood/affect, oriented x 3 ICD10 Worksheet Patient Problems: Problems Problem Status Onset Brain mass Acute S/P craniotomy Acute
[2017-08-20] MEDS: ATORVASTATIN CALCIUM 20 MG TAB PO SCH (20:35)
[2017-08-21] MEDS: LEVOTHYROXINE 50 MCG TAB PO SCH (06:00)
[2017-08-21] MEDS: ENOXAPARIN 80 MG/0.8 ML SYR SC SCH ×2 (08:06→20:12)
[2017-08-21] MEDS: POLYETHYLENE GLYCOL 3350 17 GM PKT PO SCH (08:31)
[2017-08-21] MEDS: DEXAMETHASONE 0.5 MG TAB PO SCH ×2 (08:32→20:12)
[2017-08-21] MEDS: FAMOTIDINE 20 MG TAB PO SCH ×2 (08:32→20:13)
[2017-08-21] MEDS: CYANO/VITAMIN B12 1000 MCG TAB PO SCH (08:32)
[2017-08-21] MEDS: levETIRAcetam 250 MG TAB PO SCH ×2 (08:32→20:13)
[2017-08-21] MEDS: CHOLECALCIFEROL VIT D3 1,000 UNITS TAB PO SCH (08:32)
--- NOTE | 2017-08-21 14:19 | SOAPPROG ---
SOAP Progress Note Assessment/Plan: Assessment: * Left-sided weakness, status post craniotomy and excision of right frontal brain mass on 08/06/2017 with deficits to mobility and ADLs. * Initial functional independence measure of 75 on 08/14/2017 improved to 91 as of 08/21/2017. She is independent with bed mobility. She transfers with standby assist. She has ambulated greater than 400 ft with a trekking pole and standby assist. She needs contact guard assist to standby assist to ambulate outside. She has climbed 9 stairs with a trekking pole and it 1 rail. She did a car transfer with standby assist. She is noted to have left neglect. She needs cues for upper body dressing due to left neglect. Otherwise activities of daily living are done with standby assist. * Continue PT and OT to optimize mobility and activities of daily living toward discharge to home at the supervision to modified independence level. * Mild dysphagia and dysprosody. Continue Speech and Language Pathology. * Cognitive impairment with decreased memory, executive function, problem solving, reasoning and attention. Continue VACUUM TESTER CANS. * Post surgical care. Continue levetiracetam until followup with Neurosurgery. Dexamethasone has been tapered to 0.5 mg twice daily, which will continue until followup with Neurosurgery after discharge. * Depression with emotional lability and insomnia. * Trial of melatonin HS starting 08/21/2017; if not successful consider trazodone. * Will initiate citalopram at 5 mg q.day on 08/22/2017 and titrate if it is tolerated. * Continue counseling per INJECTION PRESS OPERATOR. * DVT, distal, peroneal vein. * High risk per Wells score, and had DVT while on prophylactic enoxaparin. * Changed enoxaparin to treatment dose, 1 milligram/kilogram subcutaneous twice daily. * She should certainly continue for 1 month, and possibly 3 months or indefinitely. * NOAC is a possibility but there is less data re use in cancer patients. She says she doesn't mind the injections. * Follow-up with Oncology. * Dyspnea, which was coincident with her fall approximately a month prior to surgery. * Not requiring O2. * Continue incentive spirometer. * Continue p.r.n. Albuterol. * Pain management. * Appears to be adequate with acetaminophen. Not using oxycodone. * Ecchymosis right plantar foot. * May have had minor trauma that she did not notice, and has easy bruising due to enoxaparin. * Hypothyroidism. Continue levothyroxine. * Dyslipidemia. Continue atorvastatin. * Prophylaxis. With left hemiparesis and relative immobility, as well as a solid tumor, she is at increased risk of deep venous thrombosis. Continue enoxaparin 80 makes obtaining S twice daily. FOLLOWUP: She has followup scheduled with the [facility] on 08/20 at 1400. Transport by . Attended staffing, 15 min. Discussed with case management, dietitian, nursing, PT, OT, VACUUM TESTER CANS. Continue tentative discharge date set for 08/28/2017, home with . Will have home PT OT, VACUUM TESTER CANS and RN. 08/21/17 14:19 Subjective: Reports insomnia. Says it is hard to get to sleep. Reports that she has a ladder on her mind regarding her poor prognosis. Also she says she gets some reflux symptoms at about 203 in the morning, which improved with eating a cracker and taking times. Otherwise without acute complaints. Objective: Vital Signs Temp Pulse Resp BP Pulse Ox 36.4 C 80 16 112/80 94 08/21/17 05:45 08/21/17 05:45 08/21/17 05:45 08/21/17 05:45 08/21/17 05:45 Laboratory Results 08/13/17 06:00 08/13/17 06:00 08/20/17 08/21/17 08/22/17 05:59 05:59 05:59 Intake Total 358 499 4271 Balance 266 855 9424 - Time Spent With Patient Time Spent With Patient: Greater than 35 min floor time today, including more than 50% of time in coordination of care during staffing meeting, and counseling patient. Physical Exam - Physical Exam General Appearance: WD/WN, alert, no apparent distress, other (Emotionally labile) Respiratory: normal breath sounds, No crackles, No rhonchi, No wheezing Cardiac/Chest: regular rate, rhythm, No diastolic murmur, No systolic murmur Skin: normal color, warm/dry Neuro/Psych: alert, normal mood/affect, oriented x 3, abnormal gait (Slow, slightly wide based, using tracking pole left hand, with ooccasional assistance for steering.) ICD10 Worksheet Patient Problems: Problems Problem Status Onset Brain mass Acute S/P craniotomy Acute
[2017-08-21] MEDS: ATORVASTATIN CALCIUM 20 MG TAB PO SCH ×2 (20:12→21:01)
[2017-08-21] MEDS: MELATONIN 3 MG TAB PO SCH (20:13)
[2017-08-21] MEDS: CALCIUM CARBONATE 500 MG CHEWABLE TAB PO PRN (20:14)
[2017-08-22] MEDS: LEVOTHYROXINE 50 MCG TAB PO SCH (05:08)
--- NOTE | 2017-08-22 10:01 | SOAPPROG ---
JERRY Progress Note Assessment/Plan: 67-year-old woman with GBM status post resection 08/06/2017 Today's update: She is doing very well from an overall rehab perspective today , progressing in therapies currently using 2 trekking poles for ambulation. She states that her mood is good, no concerns. She feels that she has good resources for adjustment. She slept well last night on melatonin. No changes to the rehab plan below. * Left-sided weakness, status post craniotomy and excision of right frontal brain mass on 08/06/2017 with deficits to mobility and ADLs. * Initial functional independence measure of 75 on 08/14/2017 improved to 91 as of 08/21/2017. She is independent with bed mobility. She transfers with standby assist. She has ambulated greater than 400 ft with a trekking pole and standby assist. She needs contact guard assist to standby assist to ambulate outside. She has climbed 9 stairs with a trekking pole and it 1 rail. She did a car transfer with standby assist. She is noted to have left neglect. She needs cues for upper body dressing due to left neglect. Otherwise activities of daily living are done with standby assist. * Continue PT and OT to optimize mobility and activities of daily living toward discharge to home at the supervision to modified independence level. * Mild dysphagia and dysprosody. Continue Speech and Language Pathology. * Cognitive impairment with decreased memory, executive function, problem solving, reasoning and attention. Continue GREEN CHAIN OFFBEARER. * Post surgical care. Continue levetiracetam until followup with Neurosurgery. Dexamethasone has been tapered to 0.5 mg twice daily, which will continue until followup with Neurosurgery after discharge. * Depression with emotional lability and insomnia. * Trial of melatonin HS starting 08/21/2017; effective for her * citalopram at 5 mg q.day on 08/22/2017 and titrate in coming days. * Continue counseling per ALL SOURCE ANALYST. * DVT, distal, peroneal vein. * High risk per Wells score, and had DVT while on prophylactic enoxaparin. * Changed enoxaparin to treatment dose, 1 milligram/kilogram subcutaneous twice daily. * She should certainly continue for 1 month, and possibly 3 months or indefinitely. * NOAC is a possibility but there is less data re use in cancer patients. She says she doesn't mind the injections. * Follow-up with Oncology. * Dyspnea, which was coincident with her fall approximately a month prior to surgery. * Not requiring O2. * Continue incentive spirometer. * Continue p.r.n. Albuterol. * Pain management. * Appears to be adequate with acetaminophen. Not using oxycodone. * Ecchymosis right plantar foot. * May have had minor trauma that she did not notice, and has easy bruising due to enoxaparin. * Hypothyroidism. Continue levothyroxine. * Dyslipidemia. Continue atorvastatin. * Prophylaxis. With left hemiparesis and relative immobility, as well as a solid tumor, she is at increased risk of deep venous thrombosis. Continue enoxaparin 80 makes obtaining S twice daily. FOLLOWUP: She has followup scheduled with the [facility] on 08/20 at 1400. Transport by . Continue tentative discharge date set for 08/28/2017, home with . Will have home PT OT, GREEN CHAIN OFFBEARER and RN. 08/22/17 09:57 Subjective: Chief complaint: Rehabilitation progress No acute events overnight. Patient or says that therapy is going well and she is tolerating the to trekking poles without issue. Her mood is good today, slept well on new dose of melatonin. No new shortness of breath or chest pain, no new numbness, tingling, or weakness. She denied that she had any questions and felt that things were going well overall, she is complimentary of the rehabilitation care on the unit. Family is not available for further discussion Objective: Vital Signs Temp Pulse Resp BP Pulse Ox 36.6 C 72 16 92/57 L 92 08/22/17 07:20 08/22/17 07:20 08/22/17 07:20 08/22/17 07:20 08/22/17 07:20 Laboratory Results 08/13/17 06:00 08/13/17 06:00 08/21/17 08/22/17 08/23/17 05:59 05:59 05:59 Intake Total 960 1904 300 Balance 960 1904 300 ICD10 Worksheet Patient Problems: Problems Problem Status Onset Brain mass Acute S/P craniotomy Acute
[2017-08-22] MEDS: levETIRAcetam 250 MG TAB PO SCH ×2 (10:17→20:04)
[2017-08-22] MEDS: DEXAMETHASONE 0.5 MG TAB PO SCH ×2 (10:17→20:04)
[2017-08-22] MEDS: ENOXAPARIN 80 MG/0.8 ML SYR SC SCH ×2 (10:17→20:03)
[2017-08-22] MEDS: CYANO/VITAMIN B12 1000 MCG TAB PO SCH (10:19)
[2017-08-22] MEDS: FAMOTIDINE 20 MG TAB PO SCH ×2 (10:19→20:04)
[2017-08-22] MEDS: CHOLECALCIFEROL VIT D3 1,000 UNITS TAB PO SCH (10:19)
[2017-08-22] MEDS: CITALOPRAM 20 MG TAB PO SCH (10:36)
[2017-08-22] MEDS: POLYETHYLENE GLYCOL 3350 17 GM PKT PO SCH (10:36)
[2017-08-22] MEDS: ATORVASTATIN CALCIUM 20 MG TAB PO SCH (20:04)
[2017-08-22] MEDS: MELATONIN 3 MG TAB PO SCH (20:04)
[2017-08-22] MEDS: ACETAMINOPHEN 325 MG TAB PO PRN (23:47)
[2017-08-23] MEDS ORDERED: oxyCODONE IR 5 MG TAB PO PRN (01:09)
[2017-08-23] MEDS: LEVOTHYROXINE 50 MCG TAB PO SCH (05:48)
[2017-08-23] MEDS: ENOXAPARIN 80 MG/0.8 ML SYR SC SCH ×2 (09:01→20:38)
[2017-08-23] MEDS: POLYETHYLENE GLYCOL 3350 17 GM PKT PO SCH (09:03)
[2017-08-23] MEDS: levETIRAcetam 250 MG TAB PO SCH ×2 (09:03→20:39)
[2017-08-23] MEDS: CHOLECALCIFEROL VIT D3 1,000 UNITS TAB PO SCH (09:05)
[2017-08-23] MEDS: DEXAMETHASONE 0.5 MG TAB PO SCH ×2 (09:05→20:38)
[2017-08-23] MEDS: FAMOTIDINE 20 MG TAB PO SCH ×2 (09:06→20:39)
[2017-08-23] MEDS: CYANO/VITAMIN B12 1000 MCG TAB PO SCH (09:06)
[2017-08-23] MEDS: CITALOPRAM 20 MG TAB PO SCH (09:07)
--- NOTE | 2017-08-23 09:52 | SOAPPROG ---
SOAP Progress Note Assessment/Plan: Assessment: * Left-sided weakness, status post craniotomy and excision of right frontal brain mass on 08/06/2017 with deficits to mobility and ADLs. * Initial functional independence measure of 75 on 08/14/2017 improved to 91 as of 08/21/2017. She is independent with bed mobility. She transfers with standby assist. She has ambulated greater than 400 ft with a trekking pole and standby assist. She needs contact guard assist to standby assist to ambulate outside. She has climbed 9 stairs with a trekking pole and 1 rail. She did a car transfer with standby assist. She is noted to have left neglect. She needs cues for upper body dressing due to left neglect. Otherwise activities of daily living are done with standby assist. * Continue PT and OT to optimize mobility and activities of daily living toward discharge to home at the supervision to modified independence level. * Mild dysphagia and dysprosody. Continue Speech and Language Pathology. * Cognitive impairment with decreased memory, executive function, problem solving, reasoning and attention. Continue MANAGER SALES. * Post surgical care. Continue levetiracetam until followup with Neurosurgery. Dexamethasone has been tapered to 0.5 mg twice daily, which will continue until followup with Neurosurgery after discharge. * adjustment disorder with depressed mood, and insomnia. * Insomnia improved with melatonin HS starting 08/21/2017. * Started citalopram at 5 mg q.day on 08/22/2017; no adverse effects noted; increased to 10 mg q.day starting 08/24/2017. * Continue counseling per LOGISTICS SUPERVISOR. * DVT, distal, peroneal vein. * High risk per Wells score, and had DVT while on prophylactic enoxaparin. * Changed enoxaparin to treatment dose, 1 milligram/kilogram subcutaneous twice daily. * She should certainly continue for 1 month, and possibly 3 months or indefinitely. * NOAC is a possibility but there is less data re use in cancer patients. She says she doesn't mind the injections. * Follow-up with Oncology. * Dyspnea, which was coincident with her fall approximately a month prior to surgery. * Not requiring O2. * Continue incentive spirometer. * Continue p.r.n. Albuterol. * Pain management. * Appears to be adequate with acetaminophen. Not using oxycodone. * Ecchymosis right plantar foot. * May have had minor trauma that she did not notice, and has easy bruising due to enoxaparin. * Hypothyroidism. Continue levothyroxine. * Dyslipidemia. Continue atorvastatin. * Prophylaxis. With left hemiparesis and relative immobility, as well as a solid tumor, she is at increased risk of deep venous thrombosis. Continue enoxaparin 80 makes obtaining S twice daily. FOLLOWUP: She will follow-up with [facility] after discharge. Continue tentative discharge date set for 08/28/2017, home with . Will have home PT OT, MANAGER SALES and RN. 08/23/17 09:45 Subjective: No complaints this morning. Slept well after taking melatonin. Had episode of increased pain in the left calf which resolved with a dose of oxycodone. Does not notice any side effects from citalopram. Objective: Vital Signs Temp Pulse Resp BP Pulse Ox 37.0 C 66 16 89/56 L 92 08/23/17 08:00 08/23/17 08:00 08/23/17 08:00 08/23/17 08:00 08/23/17 08:00 Laboratory Results 08/13/17 06:00 08/13/17 06:00 08/22/17 08/23/17 08/24/17 05:59 05:59 05:59 Intake Total 1904 1500 Output Total 150 Balance 1904 1350 Physical Exam - Physical Exam General Appearance: WD/WN, alert, no apparent distress Respiratory: No respiratory distress, No accessory muscle use Skin: normal color, warm/dry Neuro/Psych: alert, normal mood/affect, oriented x 3, other (Ambulates slowly with bilateral trekking poles.) ICD10 Worksheet Patient Problems: Problems Problem Status Onset Brain mass Acute S/P craniotomy Acute
[2017-08-23] MEDS: ACETAMINOPHEN 325 MG TAB PO PRN (15:57)
[2017-08-23] MEDS: MELATONIN 3 MG TAB PO SCH (20:39)
[2017-08-23] MEDS: ATORVASTATIN CALCIUM 20 MG TAB PO SCH (21:45)
[2017-08-24] MEDS: LEVOTHYROXINE 50 MCG TAB PO SCH (05:48)
[2017-08-24] MEDS: ACETAMINOPHEN 325 MG TAB PO PRN ×2 (05:53→15:35)
[2017-08-24] MEDS: levETIRAcetam 250 MG TAB PO SCH ×2 (08:45→20:08)
[2017-08-24] MEDS: FAMOTIDINE 20 MG TAB PO SCH ×2 (08:45→20:08)
[2017-08-24] MEDS: CITALOPRAM 20 MG TAB PO SCH (08:46)
[2017-08-24] MEDS: DEXAMETHASONE 0.5 MG TAB PO SCH ×2 (08:46→20:08)
[2017-08-24] MEDS: CHOLECALCIFEROL VIT D3 1,000 UNITS TAB PO SCH (08:47)
[2017-08-24] MEDS: CYANO/VITAMIN B12 1000 MCG TAB PO SCH (08:47)
[2017-08-24] MEDS: ENOXAPARIN 80 MG/0.8 ML SYR SC SCH ×2 (09:06→20:08)
[2017-08-24] MEDS: POLYETHYLENE GLYCOL 3350 17 GM PKT PO SCH (09:08)
--- NOTE | 2017-08-24 12:31 | SOAPPROG ---
SOAP Progress Note Assessment/Plan: Assessment: * Left-sided weakness, status post craniotomy and excision of right frontal brain mass on 08/06/2017 with deficits to mobility and ADLs. * Initial functional independence measure of 75 on 08/14/2017 improved to 91 as of 08/21/2017. She is independent with bed mobility. She transfers with standby assist. She has ambulated greater than 400 ft with a trekking pole and standby assist. She needs contact guard assist to standby assist to ambulate outside. She has climbed 9 stairs with a trekking pole and 1 rail. She did a car transfer with standby assist. She is noted to have left neglect. She needs cues for upper body dressing due to left neglect. Otherwise activities of daily living are done with standby assist. * Continue PT and OT to optimize mobility and activities of daily living toward discharge to home at the supervision to modified independence level. * Mild dysphagia and dysprosody. Continue Speech and Language Pathology. * Cognitive impairment with decreased memory, executive function, problem solving, reasoning and attention. Continue METALSMITH APPRENTICE. * Post surgical care. Continue levetiracetam until followup with Neurosurgery. Dexamethasone has been tapered to 0.5 mg twice daily, which will continue until followup with Neurosurgery after discharge. * adjustment disorder with depressed mood, and insomnia. * Insomnia improved with melatonin HS starting 08/21/2017. * Started citalopram at 5 mg q.day on 08/22/2017; no adverse effects noted; increased to 10 mg q.day starting 08/24/2017. * Continue counseling per WHITE METAL CORROSION PROOFER. * DVT, distal, peroneal vein. * High risk per Wells score, and had DVT while on prophylactic enoxaparin. * Changed enoxaparin to treatment dose, 1 milligram/kilogram subcutaneous twice daily. * She should certainly continue for 1 month, and possibly 3 months or indefinitely. * NOAC is a possibility but there is less data re use in cancer patients. She says she doesn't mind the injections. * Follow-up with Oncology. * Dyspnea, which was coincident with her fall approximately a month prior to surgery. * Not requiring O2. * Continue incentive spirometer. * Continue p.r.n. Albuterol. * Pain management. * Appears to be adequate with acetaminophen. Not using oxycodone. * Ecchymosis right plantar foot. * May have had minor trauma that she did not notice, and has easy bruising due to enoxaparin. * Hypothyroidism. Continue levothyroxine. * Dyslipidemia. Continue atorvastatin. * Prophylaxis. With left hemiparesis and relative immobility, as well as a solid tumor, she is at increased risk of deep venous thrombosis. Continue enoxaparin 80 makes obtaining S twice daily. FOLLOWUP: She will follow-up with [facility] after discharge. Continue tentative discharge date set for 08/28/2017, home with . Will have home PT OT, METALSMITH APPRENTICE and RN. Plan: 08/24/17 12:31 Subjective: Feels pretty good. No new complaints Objective: Vital Signs Temp Pulse Resp BP Pulse Ox 36.6 C 62 16 93/66 L 93 08/24/17 06:49 08/24/17 06:49 08/24/17 06:49 08/24/17 06:49 08/24/17 06:49 Laboratory Results 08/13/17 06:00 08/13/17 06:00 08/23/17 08/24/17 08/25/17 05:59 05:59 05:59 Intake Total 1500 1576 480 Output Total 150 Balance 1350 1576 480 Physical Exam - Physical Exam General Appearance: WD/WN, alert, no apparent distress Respiratory: normal breath sounds, No respiratory distress Cardiac/Chest: regular rate, rhythm, No edema Skin: warm/dry Neuro/Psych: alert, normal mood/affect, oriented x 3 ICD10 Worksheet Patient Problems: Problems Problem Status Onset Brain mass Acute S/P craniotomy Acute
[2017-08-24] MEDS: ATORVASTATIN CALCIUM 20 MG TAB PO SCH (20:08)
[2017-08-24] MEDS: MELATONIN 3 MG TAB PO SCH (20:08)
[2017-08-25] MEDS: LEVOTHYROXINE 50 MCG TAB PO SCH (05:42)
[2017-08-25] MEDS: ACETAMINOPHEN 325 MG TAB PO PRN (06:10)
[2017-08-25] MEDS: CHOLECALCIFEROL VIT D3 1,000 UNITS TAB PO SCH (08:08)
[2017-08-25] MEDS: CYANO/VITAMIN B12 1000 MCG TAB PO SCH (08:08)
[2017-08-25] MEDS: CITALOPRAM 20 MG TAB PO SCH (08:08)
[2017-08-25] MEDS: levETIRAcetam 250 MG TAB PO SCH ×2 (08:09→20:46)
[2017-08-25] MEDS: FAMOTIDINE 20 MG TAB PO SCH ×2 (08:10→20:45)
[2017-08-25] MEDS: DEXAMETHASONE 0.5 MG TAB PO SCH ×2 (08:11→20:45)
[2017-08-25] MEDS: ENOXAPARIN 80 MG/0.8 ML SYR SC SCH ×2 (08:22→20:45)
[2017-08-25] MEDS: POLYETHYLENE GLYCOL 3350 17 GM PKT PO SCH (09:02)
[2017-08-25] MEDS: ATORVASTATIN CALCIUM 20 MG TAB PO SCH (20:45)
[2017-08-25] MEDS: MELATONIN 3 MG TAB PO SCH (20:46)
--- NOTE | 2017-08-25 20:55 | SOAPPROG ---
SOAP Progress Note Assessment/Plan: Assessment: * Left-sided weakness, status post craniotomy and excision of right frontal brain mass on 08/06/2017 with deficits to mobility and ADLs. * Initial functional independence measure of 75 on 08/14/2017 improved to 91 as of 08/21/2017. She is independent with bed mobility. She transfers with standby assist. She has ambulated greater than 400 ft with a trekking pole and standby assist. She needs contact guard assist to standby assist to ambulate outside. She has climbed 9 stairs with a trekking pole and 1 rail. She did a car transfer with standby assist. She is noted to have left neglect. She needs cues for upper body dressing due to left neglect. Otherwise activities of daily living are done with standby assist. * Continue PT and OT to optimize mobility and activities of daily living toward discharge to home at the supervision to modified independence level. * Mild dysphagia and dysprosody. Continue Speech and Language Pathology. * Cognitive impairment with decreased memory, executive function, problem solving, reasoning and attention. Continue REPRESENTATIVE PERSONAL SERVICE. * Post surgical care. Continue levetiracetam until followup with Neurosurgery. Dexamethasone has been tapered to 0.5 mg twice daily, which will continue until followup with Neurosurgery after discharge. * adjustment disorder with depressed mood, and insomnia. * Insomnia improved with melatonin HS starting 08/21/2017. * Started citalopram at 5 mg q.day on 08/22/2017; no adverse effects noted; increased to 10 mg q.day starting 08/24/2017. * Continue counseling per MAIL HANDLER SORTER. * DVT, distal, peroneal vein. * High risk per Wells score, and had DVT while on prophylactic enoxaparin. * Changed enoxaparin to treatment dose, 1 milligram/kilogram subcutaneous twice daily. * She should certainly continue for 1 month, and possibly 3 months or indefinitely. * NOAC is a possibility but there is less data re use in cancer patients. She says she doesn't mind the injections. * Follow-up with Oncology. * Dyspnea, which was coincident with her fall approximately a month prior to surgery. * Not requiring O2. * Continue incentive spirometer. * Continue p.r.n. Albuterol. * Pain management. * Appears to be adequate with acetaminophen. Not using oxycodone. * Ecchymosis right plantar foot. * May have had minor trauma that she did not notice, and has easy bruising due to enoxaparin. * Hypothyroidism. Continue levothyroxine. * Dyslipidemia. Continue atorvastatin. * Prophylaxis. With left hemiparesis and relative immobility, as well as a solid tumor, she is at increased risk of deep venous thrombosis. Continue enoxaparin 80 makes obtaining S twice daily. FOLLOWUP: She will follow-up with [facility] after discharge. Continue tentative discharge date set for 08/28/2017, home with . Will have home PT OT, REPRESENTATIVE PERSONAL SERVICE and RN. Plan: 08/24/17 12:31 Subjective: Rehab going well. No new complaints Objective: Vital Signs Temp Pulse Resp BP Pulse Ox 37.1 C 69 15 98/61 L 92 08/25/17 18:36 08/25/17 18:36 08/25/17 18:36 08/25/17 18:36 08/25/17 18:36 Laboratory Results 08/13/17 06:00 08/13/17 06:00 08/24/17 08/25/17 08/26/17 05:59 05:59 05:59 Intake Total 1576 313 668 Output Total 1 Balance 1576 964 668 Physical Exam - Physical Exam General Appearance: WD/WN, alert, no apparent distress Neck: supple Respiratory: No respiratory distress Skin: warm/dry Neuro/Psych: alert, normal mood/affect, oriented x 3, other (Decrease inflexion) ICD10 Worksheet Patient Problems: Problems Problem Status Onset Brain mass Acute S/P craniotomy Acute
[2017-08-26] MEDS: LEVOTHYROXINE 50 MCG TAB PO SCH (05:04)
[2017-08-26] MEDS: ENOXAPARIN 80 MG/0.8 ML SYR SC SCH ×2 (09:04→20:50)
[2017-08-26] MEDS: CITALOPRAM 20 MG TAB PO SCH (09:04)
[2017-08-26] MEDS: FAMOTIDINE 20 MG TAB PO SCH ×2 (09:04→20:50)
[2017-08-26] MEDS: CYANO/VITAMIN B12 1000 MCG TAB PO SCH (09:05)
[2017-08-26] MEDS: levETIRAcetam 250 MG TAB PO SCH ×2 (09:05→20:50)
[2017-08-26] MEDS: DEXAMETHASONE 0.5 MG TAB PO SCH ×2 (09:05→20:50)
[2017-08-26] MEDS: CHOLECALCIFEROL VIT D3 1,000 UNITS TAB PO SCH (09:05)
[2017-08-26] MEDS: POLYETHYLENE GLYCOL 3350 17 GM PKT PO SCH (09:05)
--- NOTE | 2017-08-26 14:01 | PDOREHIP ---
Admission [facility] - Admission - 3 Day Assessment Period Admission Date/Day 1: 08/12/17 Day 2: 08/13/17 Day 3: 08/14/17 - Active Diagnoses Comorbidities and Co-existing Conditions at Admission: 86783. None of the Above - Skin Conditions Unhealed Pressure Ulcer (1 or more/Stage 1 or >)-Admission: 0. No Discharge [facility] - Discharge - 3 Day Assessment Period 2 Days Prior to Anticipated Discharge Date: 08/25/17 1 Day Prior to Anticipated Discharge Date: 08/26/17 Anticipated Discharge Date: 08/27/17
--- NOTE | 2017-08-26 16:29 | SOAPPROG ---
SOAP Progress Note Assessment/Plan: Assessment: * Left-sided weakness, status post craniotomy and excision of right frontal brain mass on 08/06/2017 with deficits to mobility and ADLs. * Initial functional independence measure of 75 on 08/14/2017 improved to 91 as of 08/21/2017, and to 108 as of 08/26/2017. Independent in her room 7:00 a.m. To 10 :00 p.m.. Ambulated 500 ft with tracking poles. Needs supervision to contact guard assist on on level surfaces. Independent with activities of daily living. Sits to bathe. Has left neglect. Sometimes her left hand will not let go of objects but better if she can pay attention to the left. There is no visual field cut. * Continue PT and OT to optimize mobility and activities of daily living toward discharge to home at the supervision to modified independence level. * Mild dysphagia and dysprosody. Continue Speech and Language Pathology. * Cognitive impairment with decreased memory, executive function, problem solving, reasoning and attention. Continue TRACK GREASER. * Post surgical care. Continue levetiracetam until followup with Neurosurgery. Dexamethasone has been tapered to 0.5 mg twice daily, which will continue until followup with Neurosurgery after discharge. * Adjustment disorder with depressed mood, and insomnia. * Insomnia improved with melatonin HS starting 08/21/2017. * Started citalopram at 5 mg q.day on 08/22/2017; no adverse effects noted; increased to 10 mg q.day starting 08/24/2017. * Continue counseling per AUTOMOTIVE SALES PROFESSIONAL. * DVT, distal, peroneal vein. * High risk per Wells score, and had DVT while on prophylactic enoxaparin. * Changed enoxaparin to treatment dose, 1 milligram/kilogram subcutaneous twice daily. * She should certainly continue for 1 month, and possibly 3 months or indefinitely. * NOAC is a possibility but there is less data re use in cancer patients. She says she doesn't mind the injections. * Follow-up with Oncology. * Dyspnea, which was coincident with her fall approximately a month prior to surgery. * Not requiring O2. * Continue incentive spirometer. * Continue p.r.n. Albuterol. * Pain management. * Appears to be adequate with acetaminophen. Not using oxycodone. * Ecchymosis right plantar foot. * May have had minor trauma that she did not notice, and has easy bruising due to enoxaparin. * Hypothyroidism. Continue levothyroxine. * Dyslipidemia. Continue atorvastatin. * Prophylaxis. With left hemiparesis and relative immobility, as well as a solid tumor, she is at increased risk of deep venous thrombosis. Continue enoxaparin 80 makes obtaining S twice daily. FOLLOWUP: She will follow-up with [facility] after discharge. Attended staffing, 15 min. Discussed with case management, dietitian, nursing, PT, OT, TRACK GREASER. Attended family meeting, 30 min. Patient, and 2 daughters were present. Has followup with [facility] scheduled for 08/27/2017, so discharge will take place 08/27/2017 prior to her appointment. Will have home PT OT, TRACK GREASER and RN. 08/26/17 16:26 Subjective: No complaints today. Feels ready to go home tomorrow. Objective: Vital Signs Temp Pulse Resp BP Pulse Ox 36.7 C 72 16 103/65 91 L 08/26/17 06:40 08/26/17 06:40 08/26/17 06:40 08/26/17 06:40 08/26/17 06:40 Laboratory Results 08/13/17 06:00 08/13/17 06:00 08/25/17 08/26/17 08/27/17 05:59 05:59 05:59 Intake Total 720 1208 690 Output Total 1 Balance 719 1208 690 - Time Spent With Patient Time Spent With Patient: Greater than 35 min floor time today, including more than 50% of time in coordination of care during staffing meeting, and counseling patient and family during the family meeting. Physical Exam - Physical Exam General Appearance: WD/WN, alert, no apparent distress Respiratory: normal breath sounds, No crackles, No rhonchi, No wheezing Cardiac/Chest: edema (Trace to 1+ bilateral lower extremities pretibial), irregularly irregular, No diastolic murmur, No systolic murmur Skin: normal color, warm/dry Neuro/Psych: no motor/sensory deficits, alert, normal mood/affect, oriented x 3 , other (Ambulates slowly, step through pattern, bilateral tracking poles.) ICD10 Worksheet Patient Problems: Problems Problem Status Onset Brain mass Acute S/P craniotomy Acute
[2017-08-26] MEDS: ATORVASTATIN CALCIUM 20 MG TAB PO SCH (20:50)
[2017-08-26] MEDS: MELATONIN 3 MG TAB PO SCH (20:50)
[2017-08-27] MEDS: LEVOTHYROXINE 50 MCG TAB PO SCH (06:10)
[2017-08-27] MEDS: POLYETHYLENE GLYCOL 3350 17 GM PKT PO SCH (07:53)
[2017-08-27] MEDS: CITALOPRAM 20 MG TAB PO SCH (07:54)
[2017-08-27] MEDS: CHOLECALCIFEROL VIT D3 1,000 UNITS TAB PO SCH (07:54)
[2017-08-27] MEDS: DEXAMETHASONE 0.5 MG TAB PO SCH (07:55)
[2017-08-27] MEDS: CYANO/VITAMIN B12 1000 MCG TAB PO SCH (07:55)
[2017-08-27] MEDS: levETIRAcetam 250 MG TAB PO SCH (07:58)
[2017-08-27] MEDS: FAMOTIDINE 20 MG TAB PO SCH (07:58)
[2017-08-27 08:39] VITALS: BP 92/58
[2017-08-27] MEDS: ENOXAPARIN 80 MG/0.8 ML SYR SC SCH (10:18)
--- NOTE | 2017-08-27 11:30 | PDDCSUM ---
Discharge Summary Discharge Summary: Name: Yulissa Nieves Admission date: 08/12/2017 Discharge date: 08/27/2017 Discharging physician: Leonid Palacios MD, Dr. 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 Reason for admission: Please see the full history and physical by Dr. Shankar Jimenez MD from 08/12/2017 for full details. Briefly, the patient had resection of a brain mass with pathology ultimately positive for GBM. Date of surgery was 08/06/2017. She had impairments in mobility, self-care, and cognition and was found to be a good candidate for transfer to inpatient rehabilitation. Rehabilitation course: She made excellent progress on inpatient rehabilitation with an initial functional independence measure of 75 on 08/14/2017 and was 108 as of 08/26/2017. Overall she is independently ambulating with trekking poles, but does need supervision for ADLs/IADLs. She sits to bathe. Has left-sided neglect. Her medical course was significant for pathology positive for GBM, continued dexamethasone taper. This will be followed up with Neurosurgery after discharge. She did have some adjustment disorder with depressed mood insomnia which improved with citalopram that was titrated up to 10 mg per day. She was working with our rn social work on counseling strategies. Insomnia improved with melatonin. She was also found to have a DVT of the distal peroneal vein, she is continuing with enoxaparin injections after discharge. Following up with Oncology. Is noted that she might have had minor trauma to her right plantar foot with some bruising but thought that it could be due to enoxaparin. No known falls or trauma. Discharge plan: Discharged home with family and home health from [facility], PT, OT, speech. She will need 24 hr supervision. Condition: As mentioned above, she does need supervision, ambulating independently with trekking poles. Additional equipment will be a tub/shower bench. She is also have seizure precautions that include no working on heights , no driving. She should not do driving until cleared by physician any way. Medications at discharge: Pending studies: None Issues to be addressed at follow-up: Follow up with Radiation Oncology today, also following up with [facility] in neurosurgery as well as her primary care physician. She will need ongoing care for her GBM, and ongoing decision making regarding anticoagulation for her DVT. Date of discharge: Saw the patient and answered questions. No new concerns, no new shortness of breath or chest pain, no new numbness, tingling, or weakness. Patient is looking forward to going home. Her exam was significant for impaired motor planning on the left side compared to the right but she did not have impaired coordination of movements. Heart sounds are normal and lungs were clear. No swelling in the lower limbs. A total of 45 min was spent on the floor in the planning of discharge today, the majority was spent in counseling and coordination of care regarding discharge planning.
== END 2017-08-27 11:46 | disposition home health service (06) | DRG 949 ==
LOC: BREH 15:56
PROVIDERS: ADMIT Internal Medicine; ATTEND Internal Medicine
PROC: F07M3ZZ Motor Function Treatment of Musculoskeletal System - Whole Body (ICD-10-PCS; principal; 2017-08-12)
PROC: F08Z7ZZ Vocational Activities and Functional Community or Work Reintegration Skills Treatment (ICD-10-PCS; principal; 2017-08-12)
PROC: F0636ZZ Communicative/Cognitive Integration Skills Treatment of Neurological System - Whole Body (ICD-10-PCS; principal; 2017-08-12)
DX: Z48.811 Encounter for surgical aftercare following surgery on the nervous system (principal); C71.1 Malignant neoplasm of frontal lobe; R41.844 Frontal lobe and executive function deficit; R41.841 Cognitive communication deficit; G81.94 Hemiplegia, unspecified affecting left nondominant side; R06.00 Dyspnea, unspecified; R09.02 Hypoxemia; E03.9 Hypothyroidism, unspecified; E78.5 Hyperlipidemia, unspecified; I82.890 Acute embolism and thrombosis of other specified veins; R23.3 Spontaneous ecchymoses
CPT/HCPCS: 92507-GN; 92522-GN; 92526-GN; 92610-GN; 97110-GO; 97110-GP; 97112-GO; 97112-GP; 97116-GP; 97162-GP; 97166-GO; 97530-GO; 97530-GP; 97535-GO; 99366-GO; G0515-GO; J1650